=== PATIENT | female | born 1955 | race Caucasian/White ===

== ENCOUNTER 2019-09-24 08:10 | Inpatient (IN) | payer BC ==
[~2019-09-24] VITALS: Ht 162.6 cm; Wt 76.2 kg
[2019-09-24 08:10] VITALS: BP_SYST 153
[2019-09-24] MEDS ORDERED: NACL 0.9% 1,000 ML IV ONE (08:31)
[2019-09-24] MEDS ORDERED: ASPIRIN 81 MG TAB.CHEW PO ONE (08:45)
[2019-09-24 08:49] LABS: BASOPHILS % (AUTO) 0.4 % (0.0-2.0); EOSINOPHILS # (AUTO) 0.2 K/uL (0.0-0.4); EOSINOPHILS % (AUTO) 2.5 % (0.0-4.0); HEMATOCRIT 47.9 % (36-48); HEMOGLOBIN 16.3 g/dL (12.0-16.0); LYMPHOCYTES # (AUTO) 1.3 K/uL (1.0-5.5); LYMPHOCYTES % (AUTO) 20.7 % (20.5-51.5); MEAN CORPUSCULAR HEMOGLOBIN 30 pg (27-31); MEAN CORPUSCULAR HGB CONC 34 % (32-36); MEAN CORPUSCULAR VOLUME 89 fL (79.0-98.0); MONOCYTES # (AUTO) 0.4 K/uL (0.0-1.0); MONOCYTES % (AUTO) 7.3 % (1.7-9.3); NEUTROPHILS # (AUTO) 4.2 K/uL (1.8-7.7); NEUTROPHILS % (AUTO) 69.1 % (40.0-70.0); PLATELET COUNT (AUTO) 184 K/uL (130-430); RED BLOOD CELL COUNT(AUTO) 5.36 MIL/uL (4.2-6.2); RED CELL DISTRIBUTION WIDTH 14.7 % (9.0-15.0); WHITE BLOOD COUNT (AUTO) 6.1 K/uL (4.8-10.8)
[2019-09-24] MEDS ORDERED: LOSARTAN POTASSIUM 50 MG TABLET (COZAAR) PO ONE (09:00)
[2019-09-24 09:02] LABS: CREATININE 1.26 mg/dL (0.55-1.30); POTASSIUM 3.3 mmol/L (3.5-5.1)
[2019-09-24 09:12] LABS: ALBUMIN 3.5 g/dL (3.4-4.8); TOTAL BILIRUBIN 0.8 mg/dL (0.0-1.0)
[2019-09-24] MEDS ORDERED: METOPROLOL TARTRATE 25 MG TABLET PO ONE ×2 (09:15→12:30)
[2019-09-24] MEDS ORDERED: LEVO75TA7 PO (09:27)
[2019-09-24] MEDS ORDERED: LOSA1TAB37 PO (09:27)
[2019-09-24] MEDS ORDERED: POTASSIUM CHLORIDE 10 MEQ TAB.PRT.SR PO ONE (10:00)
[2019-09-24 10:12] VITALS: BP_SYST 156
[2019-09-24] MEDS ORDERED: LEVOTHYROXINE SODIUM 0.075 MG TABLET PO ONE (10:15)
[2019-09-24] MEDS ORDERED: HYDROCHLOROTHIAZIDE 12.5 MG CAPSULE (HCTZ) PO SCH (11:00)
[2019-09-24 11:15] VITALS: BP_SYST 133
[2019-09-24] MEDS ORDERED: ENOXAPARIN SODIUM 80 MG/0.8 ML SYRINGE SQ ONE (12:45)
[2019-09-24 13:00] LABS: CHOLESTEROL 189 mg/dL (<200); HDL CHOLESTEROL 41 mg/dL (>55); LDL CHOLESTEROL 126 mg/dL (<100); TRIGLYCERIDES 131 mg/dL (30-150)
[2019-09-24] MEDS ORDERED: ATORVASTATIN 20 MG TABLET PO ONE (14:30)
[2019-09-24 15:00] VITALS: BP_SYST 110
[2019-09-24 20:00] VITALS: BP_SYST 117
[2019-09-24] MEDS ORDERED: ENOXAPARIN SODIUM 80 MG/0.8 ML SYRINGE SQ SCH (21:00)
[2019-09-24] MEDS ORDERED: METOPROLOL TARTRATE 25 MG TABLET PO SCH (21:00)
[2019-09-24 23:32] VITALS: BP_SYST 102
[2019-09-25 06:29] VITALS: BP_SYST 111
[2019-09-25] MEDS ORDERED: LEVOTHYROXINE SODIUM 0.075 MG TABLET PO SCH (07:00)
[2019-09-25 08:01] VITALS: BP_SYST 111
[2019-09-25] MEDS ORDERED: ATORVASTATIN 20 MG TABLET PO SCH (09:00)
[2019-09-25] MEDS ORDERED: ASPIRIN 81 MG TAB.CHEW PO SCH (09:00)
[2019-09-25] MEDS ORDERED: LOSARTAN POTASSIUM 50 MG TABLET (COZAAR) PO SCH (09:00)
== END 2019-09-25 08:30 | disposition short-term general hospital (02) | DRG 282 ==
LOC: SED 08:10 → STU 09:31
PROVIDERS: ADMIT Internal Medicine Hospice and Palliative Medicine; ATTEND Internal Medicine Hospice and Palliative Medicine
DX: I21.4 Non-ST elevation (NSTEMI) myocardial infarction (principal); I10 Essential (primary) hypertension; E78.5 Hyperlipidemia, unspecified; K21.9 Gastro-esophageal reflux disease without esophagitis; E87.6 Hypokalemia; Z79.899 Other long term (current) drug therapy; Z79.82 Long term (current) use of aspirin
CPT/HCPCS: 36415; 71045; 80053; 80061; 84484; 85025; 93005; 93306; 99285; G0378; J1650